=== PATIENT | female | born 1980 | race Caucasian/White ===

== ENCOUNTER → 2018-12-08 | Outpatient (CLI) | payer OTHER | LOC: FIMAGING 09:59 | PROVIDERS: ATTEND Advanced Practice Midwife | DX: O09.521 Supervision of elderly multigravida, first trimester (principal); Z3A.11 11 weeks gestation of pregnancy ==

== ENCOUNTER → 2019-02-01 | Outpatient (CLI) | payer OTHER | LOC: FIMAGING 11:32 | PROVIDERS: ATTEND Advanced Practice Midwife | DX: O09.522 Supervision of elderly multigravida, second trimester (principal); Z3A.19 19 weeks gestation of pregnancy ==